=== PATIENT | female | born 1990 ===

== ENCOUNTER → 2017-09-10 15:56 | Outpatient (CLI) | payer OTHER ==
[~2017-09-10 15:56] MED LIST: ATARAX25 MG PO; HYDROCORTISONE28 G3 TP; ZYRTEC10 M3 PO
== END | disposition home or self-care (01) ==
LOC: LAB 15:56
DX: Z34.82 Encounter for supervision of other normal pregnancy, second trimester (principal)

== ENCOUNTER 2017-10-12 16:14 | Outpatient (CLI) | payer OTHER | END 2017-10-12 18:50 | disposition home or self-care (01) | LOC: NST 16:14 | DX: Z34.82 Encounter for supervision of other normal pregnancy, second trimester (principal) ==

== ENCOUNTER 2017-12-19 08:30 | Outpatient (CLI) | payer OTHER | END 2017-12-19 08:50 | disposition home or self-care (01) | LOC: LAB 08:30 | DX: Z34.93 Encounter for supervision of normal pregnancy, unspecified, third trimester (principal) ==

== ENCOUNTER 2017-12-21 15:39 | Outpatient (CLI) | payer OTHER | END 2017-12-21 15:44 | disposition home or self-care (01) | LOC: LAB 15:39 | DX: Z34.83 Encounter for supervision of other normal pregnancy, third trimester (principal) ==

== ENCOUNTER 2017-12-24 17:26 | Inpatient (IN) | payer OTHER ==
[~2017-12-24] VITALS: Ht 160 cm; Wt 89.8 kg
[2018-01-13] MEDS ORDERED: PRENATAL 19 TA1 EACH PO (09:00)
== END 2018-01-15 11:28 | DRG 775 ==
LOC: OB/GYN 01-13 08:57 → LDR 01-13 08:57 → OB/GYN 01-13 16:13 → LDR 01-23 17:25
PROC: 10E0XZZ Delivery of Products of Conception, External Approach (ICD-10-PCS; principal; 2018-01-13)
PROC: 0KQM0ZZ Repair Perineum Muscle, Open Approach (ICD-10-PCS; 2018-01-13)
PROC: 0W8NXZZ Division of Female Perineum, External Approach (ICD-10-PCS; 2018-01-13)
PROC: 10907ZC Drainage of Amniotic Fluid, Therapeutic from Products of Conception, Via Natural or Artificial Opening (ICD-10-PCS; 2018-01-13)
PROC: 3E033VJ Introduction of Other Hormone into Peripheral Vein, Percutaneous Approach (ICD-10-PCS; 2018-01-13)
PROC: 4A033R1 Measurement of Arterial Saturation, Peripheral, Percutaneous Approach (ICD-10-PCS; 2018-01-13)
PROC: 4A1HXCZ Monitoring of Products of Conception, Cardiac Rate, External Approach (ICD-10-PCS; 2018-01-13)
DX: O70.1 Second degree perineal laceration during delivery (principal); Z37.0 Single live birth; Z3A.38 38 weeks gestation of pregnancy

== ENCOUNTER 2018-04-24 14:37 | Outpatient (CLI) | payer OTHER ==
[~2018-04-24 14:37] MED LIST changes: +PRENATAL 19 TA1 EACH PO
== END 2018-04-24 14:39 | disposition home or self-care (01) ==
LOC: RAD 14:37
DX: M54.2 Cervicalgia (principal); M62.838 Other muscle spasm

== ENCOUNTER → 2018-05-09 06:44 | Outpatient (CLI) | payer OTHER | END | disposition home or self-care (01) | LOC: LAB 06:44 | DX: R03.0 Elevated blood-pressure reading, without diagnosis of hypertension (principal); Z13.1 Encounter for screening for diabetes mellitus; E55.9 Vitamin D deficiency, unspecified; E03.8 Other specified hypothyroidism; E78.2 Mixed hyperlipidemia ==

== ENCOUNTER 2018-05-10 13:34 | Outpatient (CLI) | payer OTHER | END 2018-05-10 13:37 | disposition home or self-care (01) | LOC: RAD 13:34 | DX: M54.89 Other dorsalgia (principal) ==

== ENCOUNTER 2018-08-02 17:59 | Outpatient (CLI) | payer OTHER ==
[~2018-08-02 17:59] MED LIST changes: +METHOCARBAMOL500 MG PO; +NABUMETONE750 MG PO
== END 2018-08-02 19:00 | disposition home or self-care (01) ==
LOC: LAB 17:59
DX: R76.0 Raised antibody titer (principal); Z11.59 Encounter for screening for other viral diseases